=== PATIENT | male | born 1960 | race Caucasian/White ===

== ENCOUNTER → 2020-04-22 | Outpatient (CLI) | payer SELFPAY | LOC: CARD 13:35 | PROVIDERS: ATTEND Family Medicine | DX: I63.9 Cerebral infarction, unspecified (principal) | CPT/HCPCS: 93306 ==

== ENCOUNTER 2022-09-12 06:29 | Emergency (ER) | payer SELFPAY ==
[~2022-09-12] VITALS: Ht 176 cm; Wt 90.0 kg
--- NOTE | 2022-09-12 06:54 | ED Cough/URI ---
General Chief Complaint: Respiratory Problems Stated Complaint: TROUBLE BREATHING Nursing Triage Note: Patient presented to the ER this morning with complaints of shortness of breath x 3-4 days that has become progressively worse. Patient advised the entire house has been sick with the flu. Source: patient Exam Limitations: no limitations History of Present Illness Date Seen by Provider: Sep 12, 2022 Time Seen by Provider: 06:26 Initial Comments 61-year-old male with past medical history of chronic smoking coming in due to shortness of breath with cough for the past 3 to 4 days. He states multiple family members have bad influenza, and he is unsure if he has it. No fever that he knows of, nausea, vomiting, diarrhea, focal weakness or numbness, chest pain, abdominal pain, or any other concerns. Shortness of breath worse with movement, better with rest, and otherwise denying any other acute complaints. Has not taken any new medicines. Has not seen any other providers for this as of yet Allergies and Home Medications Allergies Coded Allergies: No Known Drug Allergies (Unverified , 09/12/22) Patient Home Medication List Home Medication List Reviewed: Yes Review of Systems Review of Systems Constitutional: No fever EENTM: nose congestion Respiratory: cough, short of breath Cardiovascular: No chest pain Gastrointestinal: no symptoms reported Genitourinary: no symptoms reported Musculoskeletal: no symptoms reported Skin: no symptoms reported Psychiatric/Neurological: No Symptoms Reported Hematologic/Lymphatic: No Symptoms Reported Immunological/Allergic: no symptoms reported All Other Systems Reviewed Negative Unless Noted: Yes Past [id number]-Yrdtqg Hx Patient Social History Tobacco Use?: Yes Tobacco type used: Cigarettes Smoking Status: Current Everyday Smoker Substance use?: No Alcohol Use?: No Immunizations Up To Date First/Initial COVID19 Vaccinat: moderna Past Medical History Surgeries: No Physical Exam Vital Signs - First Documented 09/12/22 06:37 Temp 36.8 Pulse 98 Resp 22 B/P (MAP) 177/88 (117) Pulse Ox 98 O2 Delivery Room Air Capillary Refill : Less Than 3 Seconds Height: '" Weight: lbs. oz. kg; 29.00 BMI Method: General Appearance: WD/WN, no apparent distress Eyes: Bilateral Eye Normal Inspection HEENT: PERRL/EOMI, normal ENT inspection, pharynx normal Neck: non-tender, full range of motion, supple, normal inspection Respiratory: chest non-tender, lungs clear, normal breath sounds, no respiratory distress, no accessory muscle use Cardiovascular: regular rate, rhythm, no edema, no murmur Gastrointestinal: normal bowel sounds, non tender, soft; No distended, No guarding, No rebound Extremities: normal range of motion, non-tender, normal inspection, no pedal edema, no calf tenderness, normal capillary refill Neurologic/Psychiatric: no motor/sensory deficits, alert, normal mood/affect Skin: normal color, warm/dry Lymphatic: no adenopathy Progress/Results/Core Measures Suspected Sepsis SIRS Temperature: Pulse: 98 Respiratory Rate: 22 Blood Pressure 177 /88 Mean: 117 Results/Orders Lab Results Laboratory Tests Test 09/12/22 06:31 Range/Units My Orders Orders - RODRIGUEZ FITCH MD Covid 19 Inhouse Test (09/12/22 06:35) Influenza A And B By Pcr (09/12/22 06:35) Isolation Central Supply Req (09/12/22 06:35) Chest Pa/Lat (2 View) (09/12/22 06:35) Vital Signs/I&O 09/12/22 09/12/22 06:37 06:37 Temp 36.8 Pulse 98 Resp 22 B/P (MAP) 177/88 (117) Pulse Ox 98 O2 Delivery Room Air Capillary Refill : Less Than 3 Seconds Blood Pressure Mean: 117 Progress Note : Progress Note 61-year-old male with above history coming in due to URI type symptoms as well as dyspnea in the setting of multiple family members having influenza. ABCs were intact and vitals were stable on presentation. Specifically, even with a mbulation, his oxygen is greater than 98% on room air. Lungs are clear and he is well-appearing. Chest x-ray clear with no signs of pneumonia or pneumothorax. Flu and COVID testing sent and are pending at this time. Symptoms consistent with a URI and I believe he is stable for discharge with outpatient follow-up. He was sent home with strict return precautions. Diagnostic Imaging Diagonstic Imaging: Xray Plain Films/CT/US/NM/MRI: chest Departure Impression Primary Impression: Flu-like symptoms Disposition: HOME, SELF-CARE Condition: Stable Departure-Patient Inst. Referrals: GILBERTO GOMEZ MD (PCP/Family) Primary Care Physician Patient Instructions: Viral Syndrome (DC) Add. Discharge Instructions: It seems like you do have influenza. Expect to be sick for 7 to 10 days. Take ibuprofen and/or Tylenol as needed for fever or body aches. Due to your smoking history, it is possible you have COPD. We will send an inhaler, antibiotic, and steroids to your pharmacy which you should continue to take until they are finished Scripts Albuterol Sulfate (Proventil Hfa) 6.7 Gm Hfa.aer.ad 2 PUFF INH Q6H for SHORTNESS OF BREATH for 30 Days, #1 EACH Prov: RODRIGUEZ FITCH MD 09/12/22 Methylprednisolone (Methylprednisolone Dose Pack) 4 Mg Tab.ds.pk 4 MG PO UD for 6 Days, #21 PKG PER DOSE PACK INSTRUCTIONS Prov: RODRIGUEZ FITCH MD 09/12/22 Doxycycline Hyclate (Doxycycline Hyclate) 100 Mg Tablet 100 MG PO BID for 7 Days, #20 TAB 0 Refills Prov: RODRIGUEZ FITCH MD 09/12/22 Work/School Note: Work Release Form Date Seen in the Emergency Department: Sep 12, 2022 Return to Work: Sep 14, 2022 Restrictions: Return-No Fever (24hrs) RODRIGUEZ FITCH MD Sep 12, 2022 06:54
[2022-09-12] MEDS ORDERED: METH4TAB10 PO (06:56)
[2022-09-12] MEDS ORDERED: RT-ALBUINH INH (06:56)
[2022-09-12] MEDS ORDERED: DOXY100T2 PO (06:56)
[2022-09-12 06:57] VITALS: BP 177/88
--- NOTE | 2022-09-12 08:08 | Diagnostic Imaging Report ---
EXAMINATION: Chest 2 view HISTORY: Shortness of breath. COMPARISON: None available. FINDINGS: The lung volumes are normal. No focal consolidation is seen. No large pleural effusion or pneumothorax is seen. The cardiomediastinal silhouette is normal in size and contour. No acute osseous abnormality is seen. IMPRESSION: 1. No acute pleuroparenchymal process. Dictated by: Dictated on workstation # [id number]
== END 2022-09-12 06:58 | disposition home or self-care (01) ==
LOC: EDUNIT# 06:29 → ER FS 06:31
DX: R06.02 Shortness of breath (principal); R05.9 Cough, unspecified; F17.210 Nicotine dependence, cigarettes, uncomplicated; Z28.311 Partially vaccinated for COVID-19; Z20.822 Contact with and (suspected) exposure to COVID-19
CPT/HCPCS: 71046; 87636